=== PATIENT | male | born 1965 | race Caucasian/White ===

== ENCOUNTER 2018-03-13 20:33 | Emergency (ER) | payer SELFPAY ==
[2018-03-13] MEDS ORDERED: RACEPINEPHRINE HCL 2.25% NEB 0.5 ML AMPUL NEB ONE (20:43)
[2018-03-13 20:56] LABS: ABSOLUTE EOSINOPHILS # (AUTO) 0.1 10^3/uL (0.0-0.6); ABSOLUTE LYMPHOCYTES (AUTO) 2.7 10^3/uL (0.5-4.7); ABSOLUTE MONOCYTES (AUTO) 0.6 10^3/uL (0.1-1.4); ABSOLUTE NEUT (AUTO) 5.1 10^3/uL (1.7-8.2); BASOPHILS % (AUTO) 0.3 % (0-2); EOSINOPHILS % (AUTO) 1.5 % (0-6); HEMATOCRIT 38.1 % (37.9-51.0); HEMOGLOBIN 13.2 g/dL (13.5-17.0); LYMPHOCYTES % (AUTO) 31.6 % (13-45); MEAN CORPUSCULAR HEMOGLOBIN 32.7 pg (27.0-33.4); MEAN CORPUSCULAR HGB CONC 34.6 g/dL (32.0-36.0); MEAN CORPUSCULAR VOLUME 95 fl (80-97); MONOCYTES % (AUTO) 7.1 % (3-13); PLATELET COUNT 292 10^3/uL (150-450); RED BLOOD COUNT 4.03 10^6/uL (4.35-5.55); SEGMENTED NEUTROPHILS % (AUTO) 59.5 % (42-78); TOTAL CELLS COUNTED % (AUTO) 100 %; WHITE BLOOD COUNT 8.6 10^3/uL (4.0-10.5)
[2018-03-13] MEDS ORDERED: TRANEXAMIC ACID INJ/PF 1,000 MG/10 ML SDV IV ONE ×2 (20:57→21:18)
[2018-03-13 21:03] LABS: INTERNATIONAL RATION (INR) 0.93
--- NOTE | 2018-03-13 21:03 | RADIOLOGY REPORT (SQ) ---
EXAM DESCRIPTION: CHEST SINGLE VIEW COMPLETED DATE/TIME: 03/13/2018 8:52 pm REASON FOR STUDY: coughing up blood COMPARISON: None. EXAM PARAMETERS: NUMBER OF VIEWS: One view. TECHNIQUE: Single frontal radiographic view of the chest acquired. RADIATION DOSE: NA LIMITATIONS: None. FINDINGS: LUNGS AND PLEURA: No opacities, masses or pneumothorax. No pleural effusion. MEDIASTINUM AND HILAR STRUCTURES: No masses. Contour normal. HEART AND VASCULAR STRUCTURES: Heart normal in size. Normal vasculature. BONES: No acute findings. HARDWARE: None in the chest. OTHER: No other significant finding. IMPRESSION: NO ACUTE RADIOGRAPHIC FINDING IN THE CHEST. TECHNICAL DOCUMENTATION: JOB ID: [id number] [place]-72 2010 [employer]- All Rights Reserved Reading location - IP/workstation name: [facility] ([email or web address])
[2018-03-13 21:04] LABS: PARTIAL THROMBOPLASTIN TIME 44.7 SEC (23.5-35.8)
[2018-03-13] MEDS ORDERED: NORMAL SALINE 1000 ML 1,000 ML IV ONE (21:07)
--- NOTE | 2018-03-13 21:07 | ER Document Report ---
ED General - General Chief Complaint: Cough Stated Complaint: COUGHING UP BLOOD Time Seen by Provider: 03/13/18 20:58 Mode of Arrival: Ambulatory Information source: Patient Notes: This is a 52-year-old man with a history of gout who presents to the emergency room coughing up blood. Patient is a half a pack per day smoker and has no history of COPD/asthma/wheezing. He does drink a few times a week but not in excess (this is confirmed by his and son at the bedside). The last time he has been on the medicine (colchicine and Indocin) was approximately 3 weeks ago. Patient was otherwise in his usual state of health when he started to have coughing and then started coughing up blood. He denies any pain at this time. He has denied any abdominal pain. He has denied any blood in the stool. TRAVEL OUTSIDE OF THE [place] IN LAST 30 DAYS: No - HPI Onset: Just prior to arrival Onset/Duration: Sudden Quality of pain: No pain Severity: None Pain Level: Denies Associated symptoms: denies: Chills, Fever, Shortness of breath Exacerbated by: Denies Relieved by: Denies Similar symptoms previously: No Recently seen / treated by doctor: No - Related Data Allergies/Adverse Reactions: No Known Allergies Allergy (Unverified 03/13/18 20:36) Past Medical History - General Information source: Patient - Social History Smoking Status: Current Some Day Smoker Cigarette use (# per day): Yes - Half pack per day Chew tobacco use (# tins/day): No Frequency of alcohol use: Occasional Drug Abuse: None Lives with: Family Family History: None Patient has suicidal ideation: No Patient has homicidal ideation: No - Past Medical History Cardiac Medical History: Reports: None Pulmonary Medical History: Reports: None EENT Medical History: Reports: None Neurological Medical History: Reports: None Endocrine Medical History: Reports: None Renal/ Medical History: Reports: None. Denies: Hx Peritoneal Dialysis Malignancy Medical History: Reports None GI Medical History: Reports: None Musculoskeletal Medical History: Reports Hx Gout Skin Medical History: Reports None Psychiatric Medical History: Reports: None Traumatic Medical History: Reports: None Infectious Medical History: Reports: None Past Surgical History: Reports: Hx Cholecystectomy Review of Systems - Review of Systems Constitutional: denies: Chills, Fever EENT: No symptoms reported Cardiovascular: denies: Chest pain, Palpitations, Heart racing, Orthopnea Respiratory: See HPI Gastrointestinal: No symptoms reported Genitourinary: No symptoms reported Male Genitourinary: No symptoms reported Musculoskeletal: No symptoms reported Skin: No symptoms reported Hematologic/Lymphatic: No symptoms reported Neurological/Psychological: No symptoms reported Physical Exam - Vital signs Vitals: Resp Pulse Ox 20 94 03/13/18 20:48 03/13/18 20:48 Notes: Physical exam: GENERAL: 52-year-old man, alert and oriented 3. He is coughing up gross blood. He is not in any respiratory distress. Does not complain of any pain. Does have a pale complexion. HEAD: Atraumatic, normocephalic. EYES: Pupils equal round and reactive to light, extraocular movements intact, sclera anicteric, conjunctiva are normal. ENT: TMs normal, nares patent, oropharynx clear without exudates. Moist mucous membranes. NECK: Normal range of motion, supple without obvious mass or JVD. LUNGS: Breath sounds clear to auscultation bilaterally and equal. No wheezes rales or rhonchi. HEART: Regular rate and rhythm without murmurs, rubs or gallops. ABDOMEN: Soft, normoactive bowel sounds. No tenderness to palpation. No guarding, no rebound. No masses appreciated. Rectal: Brown stool, sent for study EXTREMITIES: Normal range of motion, no pitting or edema. No clubbing or cyanosis. NEUROLOGICAL: Cranial nerves II through XII grossly intact. Normal speech, moving all extremities. PSYCH: Normal mood, normal affect. SKIN: Warm, Dry, normal turgor, no rashes or lesions noted. Course - Re-evaluation Re-evalutation: 03/14/18 03:36 Patient was given nebulized TXA with significant improvement. He had a total output of 100 cc of gross blood. CTA shows no pulmonary emboli but there is concern for multiple nodules. There is also some airspace the disease in the right midlung. I did discuss the findings with the patient. His symptoms are not consistent with pneumonia. The concern is some sort of malignant process. He did have an incidental finding of a pericardial effusion. I did discuss these findings with Dr. Barajas at [facility]. Patient's response to TXA was significant and is not had any bleeding for the prior 2 hours before his departure. He has been hemodynamically stable. - Vital Signs Vital signs: Temp Pulse Resp BP Pulse Ox 98.2 F 5 L 126/93 H 96 03/14/18 03:26 03/14/18 01:14 03/14/18 01:16 03/14/18 01:14 - Laboratory Result Diagrams: 03/13/18 20:45 03/13/18 21:40 Laboratory results interpreted by me: 03/13/18 03/13/18 03/13/18 20:45 20:45 21:40 RBC 4.03 L Hgb 13.2 L APTT 44.7 H BUN 24 H Creatinine 1.37 H Est GFR (Non-Af Amer) 55 L Direct Bilirubin 0.5 H AST 127 H ALT 116 H Creatine Kinase CK-MB (CK-2) 03/13/18 03/13/18 21:40 21:40 RBC Hgb APTT BUN Creatinine Est GFR (Non-Af Amer) Direct Bilirubin AST ALT Creatine Kinase 2591 H CK-MB (CK-2) 8.11 H - Diagnostic Test Radiology reviewed: Image reviewed, Reports reviewed - Chest x-ray shows no obvious infiltrates - EKG Interpretation by Me Rate: Normal Rhythm: NSR - EKG shows normal sinus rhythm degree AV block, right bundle branch block of unknown age, no acute ST-T wave changes Critical Care Note - Critical Care Note Total time excluding time spent on procedures (mins): 60 Discharge - Discharge Clinical Impression: Hemoptysis Condition: Serious Disposition: [facility]
[2018-03-13 22:12] LABS: ALANINE AMINOTRANSFERASE 116 U/L (21-72); ALBUMIN 4.7 g/dL (3.5-5.0); ALKALINE PHOSPHATASE 43 U/L (38-126); ANION GAP 11 (5-19); ASPARTATE AMINO TRANSFERASE 127 U/L (17-59); BILIRUBIN,DIRECT 0.5 mg/dL (0.0-0.4); BILIRUBIN,TOTAL 0.6 mg/dL (0.2-1.3); BLOOD UREA NITROGEN 24 mg/dL (7-20); CARBON DIOXIDE 28 mmol/L (22-30); CHLORIDE 101 mmol/L (98-107); GLUCOSE 82 mg/dL (75-110); POTASSIUM 4.4 mmol/L (3.6-5.0); SODIUM 139.8 mmol/L (137-145); TOTAL PROTEIN 8.2 g/dL (6.3-8.2)
[2018-03-13 22:24] LABS: CREATINE KINASE MB 8.11 ng/mL (<4.55); TROPONIN I 0.016 ng/mL
--- NOTE | 2018-03-13 23:14 | RADIOLOGY REPORT (SQ) ---
CTA CHEST WITH IV CONTRAST History: 52-year-old male who is coughing up blood. Comparison: There are no priors to allow for comparison. Technique:Multiple axial images are taken from the level of the thyroid down through the upper abdomen with and without the use of IV contrast. Images are then reconstructed in the sagittal and coronal planes. 3D rendering with interpretation and reporting of computed tomography, under concurrent supervision; not requiring image postprocessing on an independent workstation using 3D, 3D post processing, 3D reconstructions, Maximum intensity projection (MIPs) Volume rendering. This exam was performed according to our departmental dose-optimization program which includes use of Automated Exposure Control, adjustment of the mA and/or kV according to patient size and/or use of iterative reconstruction technique. Findings: Lungs: The lungs are adequately expanded. Airspace opacities and groundglass opacities in the medial right upper lobe. On axial image 48 there is a nodule that measures 1.2 x 0.7 cm On axial image 54 there is a 4.1 mm pulmonary nodule. On axial image 68 there is a 10 mm pulmonary nodule in the right lower lobe. On axial image 49 there is a calcified nodule measures 5 mm in the right lower lobe. There is no evidence of pneumothorax. There is no evidence of pneumomediastinum. Thyroid: The portions of the thyroid which are visualized are within normal limits. Mediastinum: Calcified lymph node is seen in the left hilar region. The aorta measures within normal limits. There is no evidence of aortic injury. Main pulmonary artery measures within normal. No acute pulmonary embolus within the main or segmental pulmonary vessels. Heart measures borderline enlarged. Pericardial effusion is demonstrated measuring 15 mm. Calcified mediastinal lymph node is demonstrated. Calcified hilar lymph nodes seen on the left. Coronary artery calcifications present. Chest wall: The chest wall is within normal limits. There is no axillary lymphadenopathy. Osseous: Posttraumatic changes of the posterior left ribs are demonstrated. Subdiaphragm: Subdiaphragmatic abdominal organs included in the field of view demonstrate minimal edema around the kidneys although incompletely imaged. IMPRESSION: 1. No CT evidence for acute pulmonary embolus. 2. Airspace opacity in the medial right upper lobe. Please correlate for pneumonia. Short-term follow-up after therapy is recommended. 3. Pericardial effusion with cardiomegaly. 4. Pulmonary nodule as detailed above. Follow-up as per Fleischner 2017 criteria: 2017 Fleischner Society Recommendations for Lung Nodule Follow-Up based on size (average of long- and short-axis diameters) <6 mm Low-Risk Patient: No routine follow-up <6 mm High-Risk Patient: Optional CT at 12 months 6-8 mm Low-Risk Patient: CT at 6-[address] at 18-24 months 6-8 mm High-Risk Patient: CT at 6-[address] at 18-24 months >8 mm Low-Risk Patient: Consider CT, PET/CT or tissue sampling >8 mm High-Risk Patient: Same as for low-risk patient
[2018-03-14 00:04] LABS: APPEARANCE,URINE CLEAR; BILIRUBIN,URINE NEGATIVE (NEGATIVE); COLOR,URINE YELLOW; GLUCOSE, URINE NEGATIVE (NEGATIVE); KETONES,URINE NEGATIVE (NEGATIVE); LEUKOCYTE ESTERASE,URINE NEGATIVE (NEGATIVE); NITRITE,URINE NEGATIVE (NEGATIVE); PROTEIN,URINE NEGATIVE (NEGATIVE); URINE SPECIFIC GRAVITY 1.026; UROBILINOGEN,URINE NEGATIVE mg/dL (<2.0)
[2018-03-14 01:17] VITALS: BP 126/93
--- NOTE | 2018-03-14 07:53 | EKG REPORT ---
SEVERITY:- ABNORMAL ECG - SINUS RHYTHM FIRST DEGREE AV BLOCK RIGHT BUNDLE BRANCH BLOCK : Confirmed by: Deep Traore MD 14-Mar-2018 07:52:47
== END 2018-03-14 01:57 | disposition short-term general hospital (02) ==
LOC: ER 20:33
DX: R04.2 Hemoptysis (principal); F17.210 Nicotine dependence, cigarettes, uncomplicated
CPT/HCPCS: 93005; 96376; 99291; 96361; 96374; 86900; 86901; 36415; 82553; 86850; 82550; 83735; 85025; 85610; 85730; 82272; 80053; 81001; 84484; 71045; 71275; 93010; J7030; J3490

== ENCOUNTER 2019-09-29 12:14 | Emergency (ER) | payer OTHER ==
--- NOTE | 2019-09-29 13:43 | ER Document Report ---
ED Medical Screen (RME) - General Stated Complaint: HIGH BLOOD PRESSURE/STOMACHE/DIAHERRA - DR LUNA Time Seen by Provider: 09/29/19 13:37 Mode of Arrival: Ambulatory Information source: Patient Notes: 54-year-old male with history of high blood pressure hypothyroid and gout presents to the emergency department with extremely high blood pressure. Patient reports he was sent over here from urgent care. He reports a little bit of stomachache but denies headache or chest pain. Patient reports he is known he had high blood pressure for a while. He was treated with metoprolol but that made him dizzy so they took him off that. Recently started a new medication this past weekend. Denies other symptoms such as fever vomiting but reports some muscle aches and pains. I have greeted and performed a rapid initial assessment of this patient. A comprehensive ED assessment and evaluation of the patient, analysis of test results and completion of the medical decision making process will be conducted by additional ED providers. TRAVEL OUTSIDE OF THE [place] IN LAST 30 DAYS: No - Related Data Allergies/Adverse Reactions: No Known Allergies Allergy (Verified 09/29/19 13:38) Past Medical History Renal/ Medical History: Denies: Hx Peritoneal Dialysis Musculoskeltal Medical History: Reports Hx Gout Past Surgical History: Reports: Hx Cholecystectomy
[2019-09-29] MEDS ORDERED: HYDROCHLOROTHIAZIDE 25 MG TABLET PO ONE (13:48)
[2019-09-29 14:46] LABS: APPEARANCE,URINE CLEAR; BILIRUBIN,URINE NEGATIVE (NEGATIVE); COLOR,URINE STRAW; GLUCOSE, URINE NEGATIVE (NEGATIVE); KETONES,URINE NEGATIVE (NEGATIVE); LEUKOCYTE ESTERASE,URINE NEGATIVE (NEGATIVE); NITRITE,URINE NEGATIVE (NEGATIVE); PROTEIN,URINE 30 mg/dL (NEGATIVE); UROBILINOGEN,URINE NEGATIVE mg/dL (<2.0)
[2019-09-29 15:13] LABS: URINE AMPHETAMINES SCREEN NEGATIVE; URINE BARBITURATES SCREEN NEGATIVE; URINE BENZODIAZEPINES SCREEN NEGATIVE; URINE COCAINE SCREEN NEGATIVE; URINE MARIJUANA (THC) SCREEN NEGATIVE; URINE METHADONE SCREEN NEGATIVE; URINE PHENCYCLIDINE SCREEN NEGATIVE
[2019-09-29 15:34] LABS: ABSOLUTE BASOPHILS # (AUTO) 0.2 10^3/uL (0.0-0.2); ABSOLUTE EOSINOPHILS # (AUTO) 0.4 10^3/uL (0.0-0.6); ABSOLUTE LYMPHOCYTES (AUTO) 1.6 10^3/uL (0.5-4.7); ABSOLUTE MONOCYTES (AUTO) 0.6 10^3/uL (0.1-1.4); ABSOLUTE NEUT (AUTO) 8.6 10^3/uL (1.7-8.2); BASOPHILS % (AUTO) 1.5 % (0-2); EOSINOPHILS % (AUTO) 3.5 % (0-6); HEMATOCRIT 36.2 % (37.9-51.0); HEMOGLOBIN 11.7 g/dL (13.5-17.0); LYMPHOCYTES % (AUTO) 14.3 % (13-45); MEAN CORPUSCULAR HEMOGLOBIN 27.9 pg (27.0-33.4); MEAN CORPUSCULAR HGB CONC 32.2 g/dL (32.0-36.0); MEAN CORPUSCULAR VOLUME 87 fl (80-97); MONOCYTES % (AUTO) 5.2 % (3-13); PLATELET COUNT 406 10^3/uL (150-450); RED BLOOD COUNT 4.19 10^6/uL (4.35-5.55); RED CELL DISTRIBUTION WIDTH 16.1 % (11.5-14.0); SEGMENTED NEUTROPHILS % (AUTO) 75.5 % (42-78); TOTAL CELLS COUNTED % (AUTO) 100 %; WHITE BLOOD COUNT 11.4 10^3/uL (4.0-10.5)
--- NOTE | 2019-09-29 15:38 | EKG REPORT ---
SEVERITY:- ABNORMAL ECG - SINUS RHYTHM RBBB AND LAFB : Confirmed by: Rosalie Salgado MD 29-Sep-2019 15:37:38
[2019-09-29] MEDS ORDERED: DICYCLOMINE HCL 20 MG TABLET PO ONE (15:48)
[2019-09-29 15:56] LABS: ALBUMIN 4.4 g/dL (3.5-5.0); ALKALINE PHOSPHATASE 102 U/L (38-126); ANION GAP 15 (5-19); ASPARTATE AMINO TRANSFERASE 16 U/L (17-59); BILIRUBIN,DIRECT 0.4 mg/dL (0.0-0.4); BILIRUBIN,TOTAL 0.6 mg/dL (0.2-1.3); BLOOD UREA NITROGEN 80 mg/dL (7-20); CALCIUM 9.7 mg/dL (8.4-10.2); CARBON DIOXIDE 16 mmol/L (22-30); CHLORIDE 109 mmol/L (98-107); GLUCOSE 77 mg/dL (75-110); TOTAL PROTEIN 8.1 g/dL (6.3-8.2)
--- NOTE | 2019-09-29 16:01 | ER Document Report ---
ED Blood Pressure Problem - General Chief Complaint: High Blood Pressure Stated Complaint: HIGH BLOOD PRESSURE/STOMACHE/ELISHA - DR LUNA Time Seen by Provider: 09/29/19 13:37 Mode of Arrival: Ambulatory Notes: Is a 54-year-old male with past medical history of hypertension, gout, and hypothyroidism who presents emergency department with abdominal discomfort and diarrhea. He has had diarrhea for the past 2 weeks. States that he has some nausea, but denies any vomiting. Patient denies any shortness of breath, difficulty breathing, or any other symptoms at this time. Patient states that he attempted to take Imodium and Kaopectate, but had little relief of his symptoms. Patient attempted to go to urgent care today, but he was referred to the emergency department. TRAVEL OUTSIDE OF THE [place] IN LAST 30 DAYS: No - Related Data Allergies/Adverse Reactions: No Known Allergies Allergy (Verified 09/29/19 13:38) Past Medical History - General Information source: Patient - Social History Smoking Status: Current Every Day Smoker Chew tobacco use (# tins/day): No Frequency of alcohol use: None Drug Abuse: Marijuana Family History: None Patient has suicidal ideation: No Patient has homicidal ideation: No Renal/ Medical History: Denies: Hx Peritoneal Dialysis Musculoskeletal Medical History: Reports Hx Gout Past Surgical History: Reports: Hx Cholecystectomy Review of Systems - Review of Systems Notes: REVIEW OF SYSTEMS: CONSTITUTIONAL : Denies recent illness. Denies recent unintentional weight loss. Denies fever, chills, or sweats. EENT: Denies eye, ear, throat, or mouth pain, discharge, or symptoms. Denies nasal or sinus congestion. CARDIOVASCULAR: Denies chest pain. RESPIRATORY: Denies shortness of breath, cough, congestion, difficulty breathing, or wheezing. GASTROINTESTINAL: See HPI. GENITOURINARY: Denies difficulty urinating, burning, blood in urine, urgency or frequency. MUSCULOSKELETAL: Denies neck and back pain. Denies joint pain or swelling. SKIN: Denies rash, itchiness, or lesions HEMATOLOGIC : Denies easy bruising or bleeding. LYMPHATIC: Denies swollen, painful, enlarged glands. NEUROLOGICAL: Denies no numbness or tingling denies weakness. Denies headache. Denies altered mental status. Denies alteration in speech. PSYCHIATRIC: Denies stress, anxiety, alteration in sleep patterns, or depression. All other systems reviewed and negative. Physical Exam - Vital signs Vitals: Temp Pulse Resp BP Pulse Ox 99.0 F 72 16 252/130 H 99 09/29/19 13:40 09/29/19 13:40 09/29/19 13:40 09/29/19 13:40 09/29/19 13:40 - Notes Notes: PHYSICAL EXAMINATION: GENERAL: Appears well, healthy, well-nourished, no acute distress. HEAD: Normocephalic, atraumatic. EYES: PERRL, conjunctiva normal, all extraocular movements intact, sclera nonicteric ENT: Moist mucous membranes. NECK: Supple, no noticeable swelling, redness, rash. Normal range of motion. LUNGS: Equal breath sounds bilaterally and clear to auscultation. No wheezes rales or rhonchi. CARDIOVASCULAR: S1-S2, regular rate, regular rhythm. Radial pulses 2+, normal. ABDOMEN: Normoactive bowel sounds. Soft, mildly tender general abdomen, no guarding, no rebound tenderness, and no masses palpated. EXTREMITIES: Normal strength and range of motion, no pitting or edema. No cyanosis. NEUROLOGICAL: Moves all extremities upon command. Strength 5/5 in all extremities. PSYCH: Normal mood, normal affect. SKIN: Warm, dry. No rash, lesions, ulcerations noted. Normal skin turgor. Course - Re-evaluation Re-evalutation: 09/29/19 16:17 Calcium is 7.2 and patient is in renal failure. 09/29/19 17:[address] Faust, the welfare investigator disease education specialist. Due to the hospital not having urology disease education specialist, she is recommending the patient be transferred to another facility, as we do not have nephrology. 09/29/19 18:[address] Crowell, hospitalist at [facility]. Patient has been accepted for admission. 09/29/19 20:15 [facility]ly transportation is at bedside. I have evaluated the patient and he is safe for transfer to [facility]. - Vital Signs Vital signs: Temp Pulse Resp BP Pulse Ox 98.7 F 72 18 217/112 H 97 09/29/19 15:00 09/29/19 13:40 09/29/19 20:01 09/29/19 20:01 09/29/19 20:01 - Laboratory Result Diagrams: 09/29/19 15:15 09/29/19 18:30 Laboratory results interpreted by me: 09/29/19 09/29/19 09/29/19 14:25 15:15 15:15 WBC 11.4 H RBC 4.19 L Hgb 11.7 L Hct 36.2 L RDW 16.1 H Absolute Neuts (auto) 8.6 H Potassium 7.2 H* Chloride 109 H Carbon Dioxide 16 L BUN 80 H Creatinine 10.89 H Est GFR ( Amer) 6 L Est GFR (MDRD) Non-Af 5 L AST 16 L TSH Free T3 pg/mL PTH Intact Urine Protein 30 H Urine Blood SMALL H 09/29/19 09/29/19 09/29/19 15:15 18:30 18:30 WBC RBC Hgb Hct RDW Absolute Neuts (auto) Potassium 6.7 H* Chloride 111 H Carbon Dioxide 16 L BUN 79 H Creatinine 10.42 H Est GFR ( Amer) 6 L Est GFR (MDRD) Non-Af 5 L AST 16 L TSH 78.90 H Free T3 pg/mL 2.44 L PTH Intact Urine Protein Urine Blood 09/29/19 20:05 WBC RBC Hgb Hct RDW Absolute Neuts (auto) Potassium Chloride Carbon Dioxide BUN Creatinine Est GFR ( Amer) Est GFR (MDRD) Non-Af AST TSH Free T3 pg/mL PTH Intact 219.7 H Urine Protein Urine Blood - EKG Interpretation by Me Additional EKG results interpreted by me: 09/29/19 Sinus rhythm with a right bundle branch block. Heart rate 69. NJ 168; QRS 162; QT 436; QTc 467. EKG is very similar to previous EKG done on March 13, 2018. Discharge - Discharge Clinical Impression: Hydroureter, Hyperkalemia Acute renal failure Qualifiers: Acute renal failure type: unspecified Qualified Code(s): N17.9 - Acute kidney failure, unspecified Hydronephrosis Qualifiers: Hydronephrosis type: other Qualified Code(s): N13.39 - Other hydronephrosis Diarrhea Qualifiers: Diarrhea type: unspecified type Qualified Code(s): R19.7 - Diarrhea, unspecified Condition: Fair Disposition: [facility] Admitting Provider: Dr. Crowell
[2019-09-29 16:07] LABS: POTASSIUM 7.2 mmol/L (3.6-5.0)
[2019-09-29] MEDS ORDERED: DEXTROSE 50%-WATER 25 GM/50 ML DISP.SYRIN IV ONE ×2 (16:12→19:20)
[2019-09-29] MEDS ORDERED: SODIUM BICARBONATE 8.4% INJ 50 MEQ/50 ML DISP.SYRIN IV ONE (16:12)
[2019-09-29] MEDS ORDERED: INSULIN REG, HUMAN 100 UNIT/ML 3 ML VIAL (PYX) IV ONE ×2 (16:12→19:20)
[2019-09-29] MEDS ORDERED: NORMAL SALINE 1000 ML 2,000 ML IV ONE (16:14)
[2019-09-29] MEDS ORDERED: CALCIUM GLUCONATE 1000 MG/10 ML INJ IV ONE (16:17)
--- NOTE | 2019-09-29 16:32 | RADIOLOGY REPORT (SQ) ---
EXAM DESCRIPTION: CT ABD/PELVIS NO ORAL OR IV COMPLETED DATE/TIME: 09/29/2019 4:22 pm REASON FOR STUDY: diarrhea COMPARISON: CTA chest dated 03/13/2018 TECHNIQUE: CT scan of the abdomen and pelvis performed without intravenous or oral contrast. Images reviewed with lung, soft tissue, and bone windows. Reconstructed coronal and sagittal MPR images revi ewed. All images stored on PACS. All CT scanners at this facility use dose modulation, iterative reconstruction, and/or weight based d osing when appropriate to reduce radiation dose to as low as reasonably achievable (ALARA). [facility]: Dose Right [facility]: CareDose [facility]: Dose Right [facility]: Teradose 4D [facility]: [employer] RADIATION DOSE: CT Rad equipment meets quality standard of care and radiation dose reduction techniq ues were employed. CTDIvol: 13.4 mGy. DLP: 751 mGy-cm.mGy. LIMITATIONS: None. FINDINGS: LOWER CHEST: No significant findings. No nodules or infiltrates. NON-CONTRASTED LIVER, SPLEEN, ADRENALS: Evaluation limited by lack of IV contrast. No identified sign ificant masses. PANCREAS: No masses. No peripancreatic inflammatory changes. GALLBLADDER: Surgically absent. RIGHT KIDNEY AND URETER: There is right perinephric stranding. Several small nonobstructing right r enal calculi. There is right hydronephrosis and hydroureter. This appears to be secondary to peria ortic adenopathy. LEFT KIDNEY AND URETER: Left perinephric stranding. No significant calcifications. There is left- sided hydronephrosis and dilatation of the proximal ureter. Again this appears to be secondary to pe riaortic adenopathy. AORTA AND RETROPERITONEUM: No aneurysm. Atherosclerotic change. Extensive periaortic and retrocrura l adenopathy new from limited images through the upper abdomen in 2018. BOWEL AND PERITONEAL CAVITY: Scattered air-fluid levels. No small or large bowel distention. APPENDIX: Normal. PELVIS, BLADDER, AND ABDOMINAL WALL:No abnormal masses. No free fluid. Bladder normal. BONES: No significant findings. OTHER: No other significant finding. IMPRESSION: Extensive periaortic and retroperitoneal adenopathy. This results in obstruction of bot h mid ureters. There is mild to moderate bilateral hydronephrosis and proximal hydroureter. There i s bilateral perinephric stranding. No small-bowel obstruction. Scattered air-fluid levels. COMMENT: Quality ID # [id number]: Final reports with documentation of one or more dose reduction techniques (e.g., Automated exposure control, adjustment of the mA and/or kV according to patient size, use of iterative reconstruction technique) TECHNICAL DOCUMENTATION: JOB ID: [id number] 2010 [employer]- All Rights Reserved Reading location - IP/workstation name: [email or web address]
[2019-09-29] MEDS ORDERED: PATIROMER 8.4 GM SUSP PACKET PO SCH (17:00)
[2019-09-29] MEDS ORDERED: LABETALOL HCL INJ 20 MG/4 ML DISP.SYRIN IV ONE ×2 (18:04→19:42)
[2019-09-29] MEDS ORDERED: ALBUTEROL SULFATE 0.083% NEB 2.5 MG/3 ML AMPUL NEB ONE (18:04)
[2019-09-29 19:18] LABS: ALBUMIN 4.1 g/dL (3.5-5.0); ALKALINE PHOSPHATASE 98 U/L (38-126); ANION GAP 15 (5-19); ASPARTATE AMINO TRANSFERASE 16 U/L (17-59); BILIRUBIN,DIRECT 0.4 mg/dL (0.0-0.4); BILIRUBIN,TOTAL 0.6 mg/dL (0.2-1.3); BLOOD UREA NITROGEN 79 mg/dL (7-20); CALCIUM 9.3 mg/dL (8.4-10.2); CARBON DIOXIDE 16 mmol/L (22-30); CHLORIDE 111 mmol/L (98-107); GLUCOSE 75 mg/dL (75-110); TOTAL PROTEIN 7.7 g/dL (6.3-8.2)
[2019-09-29 19:20] LABS: POTASSIUM 6.7 mmol/L (3.6-5.0)
[2019-09-29 19:35] LABS: FREE T3 2.44 pg/mL (2.77-5.27); FREE T4 (FREE THYROXINE) 0.86 ng/dL (0.78-2.19)
[2019-09-29 20:06] VITALS: BP 217/112
== END 2019-09-29 20:26 | disposition short-term general hospital (02) ==
LOC: ER 12:14
DX: N17.9 Acute kidney failure, unspecified (principal); N13.39 Other hydronephrosis; N13.4 Hydroureter; E87.6 Hypokalemia; I10 Essential (primary) hypertension; R10.9 Unspecified abdominal pain; R19.7 Diarrhea, unspecified; R11.0 Nausea; Z79.899 Other long term (current) drug therapy; F17.200 Nicotine dependence, unspecified, uncomplicated
CPT/HCPCS: 93005; 99284; 96361; 96374; 96375; 36415; 84439; 83605; 84443; 85025; 87070; 80053; 81001; 84484; 80307; 84481; 83970; 74176; 93010; J0610; J3490 ×4; J1815; J7030